=== PATIENT | male | born 2000 | race Asian ===

== ENCOUNTER 2023-07-02 16:16 | Emergency (ER) | payer SELFPAY ==
[2023-07-02 16:24] VITALS: BP 124/63; PULSE 86; RESP 16; TEMP 37.5; O2SAT 100
--- NOTE | 2023-07-02 17:42 | ED.GENADULT ---
HPI - General Adult General Chief complaint: Dental/Oral Stated complaint: Dental Pain Source: patient Mode of arrival: ambulatory Limitations: no limitations History of Present Illness HPI narrative: Patient presents for evaluation of left upper dental pain for the last week. He indicates he knows he has a dental fracture in the site of his current pain. Pain has become more substantial and he rates it as 8/10 in severity. Pain is a throbbing sensation. He denies any fever, chills, nausea, vomiting. He does smoke marijuana and admits to vaping as well. He tried taking Tylenol for symptoms without considerable improvement thereafter. He scheduled an appt with a dentist but the appt is three weeks out. Related Data Allergies Allergy/AdvReac Type Severity Reaction Status Date / Time amoxicillin Allergy Hives Verified 07/02/23 17:07 Penicillins Allergy Hives Verified 07/02/23 17:07 PEANUTS Allergy Anaphylaxis Uncoded 07/02/23 17:07 Review of Systems Review of Systems: CONSTITUTIONAL: Denies fever, chills, or sweats. EYES: Denies visual changes, redness, or discharge. ENT: Reports left upper dental pain. Denies rhinorrhea, congestion, sore throat, or otalgia. CARDIOVASCULAR: Denies chest pain, palpitations, or edema. RESPIRATORY: Denies cough or dyspnea. GASTROINTESTINAL: Denies abdominal pain, nausea, vomiting, or diarrhea. GENITOURINARY: Denies dysuria or hematuria. SKIN: Denies rash or itching. MUSCULOSKELETAL: Denies back pain, joint pain, or myalgia. NEUROLOGIC: Denies headache, numbness, dizziness, or weakness. PSYCHIATRIC: Denies anxiety or depression. [facility] Past Medical History Medical History Tooth fracture Surgical History Surgical History History of appendectomy Family History Family History Mother Family history non-contributory Social History Social History Smoking status: Current every day smoker Tobacco type: e-cigarettes/vaping Substance use: current Substance use type: marijuana Gender identity (if verbalized by the patient): Male Spiritual care concerns: No Exam Narrative: GENERAL: Well-appearing, well-nourished, and in no acute distress. HEAD: Normocephalic, atraumatic. EYES: PERRLA and EOMI. ENT: Nares clear, no rhinorrhea or epistaxis. Mucous membranes moist. Oropharynx without tonsillar hypertrophy exudate or other lesions. Tooth # 27 is fractured. There is no visible or palpable abscess. Bilateral TMs pearly deluna nonbulging NECK: Supple. No adenopathy or masses. No carotid bruits or JVD CHEST: Clear to auscultation. No respiratory distress. No wheezes rales or rhonchi HEART: Regular rate and rhythm. No murmur heard. Normal peripheral pulses. ABDOMEN: Soft, nontender, nondistended, normal active bowel sounds. EXTREMITIES: Normal range of motion. No edema. SKIN: Warm, dry, no rash. NEURO: No focal deficits. Alert and oriented x3. PSYCH: Normal mood and affect. Course Course Emergency Course: This is a 22-year-old male who presented for evaluation of left upper dental pain. He has evidence of a dental fracture. Will cover with antibiotics, and recommended that he not smoke marijuana or vape. Will also provided with prescriptions for ibuprofen and tramadol. Follow-up with dentist. Go to the ER for worsening symptoms. Patient in agreement with plan of care. Level of Care: Express Care Visit Vital Signs Vital signs: Vital Signs Temperature 37.5 C 07/02/23 16:24 Pulse Rate 86 07/02/23 16:24 Respiratory Rate 16 07/02/23 16:24 Blood Pressure 124/63 07/02/23 16:24 Pulse Oximetry 100 07/02/23 16:24 Oxygen Delivery Room Air 07/02/23 16:24 Temperature 37.5 C 07/02/23 16:24 Pulse Rat
== END 2023-07-02 17:55 | disposition home or self-care (01) ==
PROVIDERS: Emergency Provider Nurse Practitioner
DX: S02.5XXA Fracture of tooth (traumatic), initial encounter for closed fracture (principal); X58.XXXA Exposure to other specified factors, initial encounter; F17.290 Nicotine dependence, other tobacco product, uncomplicated; F12.90 Cannabis use, unspecified, uncomplicated
CPT/HCPCS: 99203; G0463